=== PATIENT | female | born 1985 | race Caucasian/White ===

== ENCOUNTER 2021-08-13 12:14 | Emergency (ER) | payer MEDICAID ==
[~2021-08-13] VITALS: Ht 167.6 cm; Wt 82.7 kg
[2021-08-13] MEDS ORDERED: CEFDINIR300 MG PO (12:27)
[2021-08-13] MEDS ORDERED: HYDROXYZINE HCL25 M1 PO (12:28)
[2021-08-13] MEDS ORDERED: ABILIFY5 MG PO (12:28)
[2021-08-13] MEDS ORDERED: PERCOCET 325 MG1 TA2 PO (12:28)
[2021-08-13] MEDS ORDERED: SERTRALINE50 MG PO (12:29)
[2021-08-13 12:54] LABS: BASO # 0.03 K/mm3 (0.02-0.10); EOS # 0.17 K/mm3 (0.04-0.40); EOS % 2.7 % (1.0-5.0); HEMATOCRIT 39.4 % (37.0-47.0); HEMOGLOBIN 13.2 g/dL (12.5-16.0); LYMPH# 2.01 K/mm3 (1.50-4.00); MEAN CELL VOLUME 82 fl (78-100); MEAN CORPUSCULAR HEMOGLOBIN 27 pg (27-31); MEAN CORPUSCULAR HGB CONC 34 g/dL (33-37); MEAN PLATELET VOLUME 10.5 fl (7.4-10.4); MONO # 0.51 K/mm3 (0.20-0.80); NEU # 3.58 K/mm3 (1.40-6.50); PLATELET COUNT 252 K/mm3 (130-400); RED BLOOD COUNT 4.82 M/mm3 (4.10-5.30); RED CELL DISTRIBUTION WIDTH 13.2 % (11.5-14.5); WHITE BLOOD COUNT 6.3 K/mm3 (4.8-10.8)
[2021-08-13 13:17] LABS: URINE APPEARANCE CLEAR; URINE BILIRUBIN NEGATIVE (NEGATIVE); URINE BLOOD NEGATIVE (NEGATIVE); URINE COLOR YELLOW; URINE GLUCOSE NEGATIVE (NEGATIVE); URINE KETONE NEGATIVE (NEGATIVE); URINE LEUKOCYTE ESTERASE NEGATIVE (NEGATIVE); URINE MUCUS PRESENT (NOT PRESENT); URINE NITRATE NEGATIVE (NEGATIVE); URINE PROTEIN(semi-quant) NEGATIVE (NEGATIVE); URINE UROBILINOGEN NORMAL (NORMAL); URINE WBC 0-1 /hpf (0-3)
[2021-08-13 13:30] LABS: ALBUMIN 4.1 g/dL (3.5-5.0)
[2021-08-13 13:31] LABS: POTASSIUM 4.1 mmol/L (3.5-5.1)
[2021-08-13 13:33] LABS: TOTAL PROTEIN 6.8 g/dL (6.4-8.3)
[2021-08-13 13:35] LABS: TOTAL BILIRUBIN 0.4 mg/dL (0.2-1.2)
[2021-08-13] MEDS ORDERED: CEPHALEXIN250 MG/5 M PO ×2 (16:12)
[2021-08-13] MEDS ORDERED: ZOFRAN ODT4 MG PO (16:14)
[2021-08-13] MEDS ORDERED: TRAMADOL 50 MG TAB PO (16:14)
[2021-08-13 16:22] VITALS: BP 112/83
== END 2021-08-13 16:30 | disposition home or self-care (01) ==
LOC: ED 12:14
PROVIDERS: Family Medicine
DX: R10.31 Right lower quadrant pain (principal); R10.32 Left lower quadrant pain; S92.909A Unspecified fracture of unspecified foot, initial encounter for closed fracture; N39.0 Urinary tract infection, site not specified; Z87.442 Personal history of urinary calculi; Z90.49 Acquired absence of other specified parts of digestive tract; Z96.0 Presence of urogenital implants; Z98.84 Bariatric surgery status; Z88.0 Allergy status to penicillin; Z32.02 Encounter for pregnancy test, result negative; Z79.2 Long term (current) use of antibiotics; X58.XXXA Exposure to other specified factors, initial encounter
CPT/HCPCS: J7030; Q9967